=== PATIENT | female | born 1945 | race Caucasian/White ===

== ENCOUNTER 2017-11-28 22:19 | Inpatient (IN) | payer MEDICARE ==
[~2017-11-28] VITALS: Ht 157.5 cm; Wt 97.5 kg
[2017-11-28 22:21] VITALS: BP 164/77
[2017-11-28] MEDS ORDERED: ATORVASTATIN CA40 MG PO (22:27)
[2017-11-28] MEDS ORDERED: LASIX 20 MG TAB20 MG PO (22:27)
[2017-11-28] MEDS ORDERED: CARVEDILOL12.5 MG PO (22:28)
[2017-11-28] MEDS ORDERED: PLAVIX 75 MG TA75 M1 PO (22:28)
[2017-11-28] MEDS ORDERED: COUMADIN 2 MG TA2 M1 PO (22:28)
[2017-11-28] MEDS ORDERED: COZAAR100 MG PO (22:29)
[2017-11-28] MEDS ORDERED: NITROGLYCERIN0.4 MG SUBLING (22:30)
[2017-11-28] MEDS ORDERED: DAILY VITE1 EACH PO (22:30)
[2017-11-28] MEDS ORDERED: NORVASC2.5 MG PO (22:31)
[2017-11-28 22:54] LABS: ABSOLUTE BASOPHILS 0.1 thou/uL (0.0-0.2); ABSOLUTE EOSINOPHILS 0.3 thou/uL (0.0-0.7); ABSOLUTE LYMPHOCYTES 2.7 thou/uL (0.8-5.3); ABSOLUTE MONOCYTES 0.8 thou/uL (0.0-1.2); ABSOLUTE NEUTROPHILS 10.7 thou/uL (1.6-8.1); BASOPHILS 0.3 %; EOSINOPHILS 2.2 %; HEMOGLOBIN 12.8 gm/dL (12.0-15.0); LYMPHOCYTES 18.4 %; MCH 31.3 pg (26.0-34.0); MCHC 32.9 g/dL (28.0-37.0); MONOCYTES 5.3 %; MPV 9.3 fl. (7.2-11.1); NUCLEATED RBCS 0 /100WBC; PLATELET COUNT* 177 thou/uL (150-400); POLYS 73.8 %; RBC 4.11 mil/uL (4.20-5.00); RDW-CV 14.6 % (10.5-14.5); WBC 14.5 thou/uL (4.0-11.0)
[2017-11-28 23:10] LABS: ANION GAP 9 mmol/L (7-16); APTT 35.1 Seconds (25.0-31.3); BUN 28 mg/dL (7-18); CALCIUM 9.3 mg/dL (8.5-10.1); CHLORIDE 105 mmol/L (98-107); CO2 26 mmol/L (21-32); CREATININE 0.9 mg/dL (0.6-1.3); GLUCOSE 172 mg/dL (70-99); POTASSIUM 4.1 mmol/L (3.5-5.1); PROTIME 28.9 Seconds (9.20-11.50); SODIUM 140 mmol/L (136-145)
[2017-11-28 23:19] LABS: ALBUMIN 3.7 g/dL (3.4-5.0); ALKALINE PHOSPHATASE 107 U/L (46-116); NT-PRO BRAIN NAT PEPTIDE 897 pg/mL (<300); SGOT 29 U/L (15-37); SGPT 33 U/L (30-65); TOTAL BILIRUBIN 0.5 mg/dL (<0.1-1.0); TOTAL PROTEIN 7.4 g/dL (6.4-8.2); TROPONIN-I LEVEL <0.06 ng/mL (<0.06)
[2017-11-29 02:23] VITALS: BP 132/79
[2017-11-29 03:00] VITALS: BP 130/66
--- NOTE | 2017-11-29 05:02 | NUR ---
RECEIVED REPORT FROM JAVAD HUSSEIN. PT TRANSFERRED TO ROOM 204 VIA CART. PT A&OX4. VSS. PHYSICAL ASSESSMENT COMPLETED AND CHARTED. PT ON O2 VIA NC AT 2 LPM WITH 96% O2 SAT. PT TRACING SR ON TELE. PT UP ADLIB. PT C/O OF BACK PAIN WITH PAIN SCALE OF 5/10-PT DOES NOT WANT ANY PAIN MEDS. PT RESTED WELL ON BED. HS REST & SAFETY GOALS ACHIEVED. PT ORIENTED TO ROOM & CALL LIGHT. CALL LIGHT WITHIN REACH.
[2017-11-29 08:25] VITALS: BP 140/77
[2017-11-29] MEDS ORDERED: LEVEMIR SUBQ (08:46)
[2017-11-29] MEDS ORDERED: HUMALOG100 UNIT/1 SUBQ ×2 (08:47→08:49)
--- NOTE | 2017-11-29 08:53 | NUR ---
ASSUMED PT. CARE AND RECEIVED REPORT AT 0730. PT. A/OX 4, VSS, MONITOR ON TRACING SR. PT. DENIES CURRENT PAIN. REPORTS SOB IS MUCH IMPROVED FROM ADMISSION. CURRENTLY ON 2L NC @ 96%. FULL ASSESSMENT COMPLETED, REFER TO CHARTING. LONG DISCUSSION WITH PT. ABOUT PNEUMONIA/CHF/DIURETICS THIS MORNING. PT. CURRENTLY HERE ON VACATION FROM [place] TO VISIT FAMILY, SHE IS SUPPOSE TO FLY HOME ON TUESDAY AND IS CONCERNED ABOUT THIS HAPPENING. CURRENTLY NPO FOR CV CONSULT, PT. STATES UNDERSTANDING. PT. BLOOD GLUCOSE 324 THIS MORNING. PT. DOES TAKE LONG/SHORT ACTING, ADDED TO HOME MED AND WILL NOTIFIED PHYSICIAN. CALL LIGHT IN REACH, WILL CONTINUE WITH PLAN OF CARE.
[2017-11-29 10:31] LABS: CREATININE 1.3 mg/dL (0.6-1.3); MAGNESIUM 2.1 mg/dL (1.8-2.4)
[2017-11-29 12:00] VITALS: BP 128/61
--- NOTE | 2017-11-29 15:07 | NUR ---
Pt is A&O. Resides in [place], [place], here on vacation. No DME. No hx of HH or SNF. Supportive family that is involved in POC. Cardiology consult pending. Pt plans to fly home on Tuesday. Following.
[2017-11-29 16:00] VITALS: BP 139/66
--- NOTE | 2017-11-29 16:40 | NUR ---
AT 1600 LAND RECLAMATION SPECIALIST CHECK IT WAS NOTED PT. HAD GONE INTO AFIB. EKG CONFIRMED AFIB RATES 105-130. PT. ASYMPTOMATIC WITH STABLE VS. CALLED EVENT PROMOTER PHONE, MESSAGE LEFT FOR MCKENNA AT 1635. BLOOD GLUCOSE READING ON "HI" ON 1640 ACCU CHECK. STAT LAB ORDERED PER PROTOCOL, AWAITING RESULTS.
--- NOTE | 2017-11-29 20:22 | 2DMMODE ---
[place] [address] 2 D/M-MODE ECHOCARDIOGRAM Name: LIAM CHRISTIANSON Room: [address] IN [facility]#: [id number] Admission: 11/28/17 Attend Phys: Sidney Terrazas, Discharge: Date of : 49 Date of Service: 11/29/172020 Report #: [id number] THIS REPORT FOR: //name// APPROVED REPORT Study performed: 11/29/2017 13:33:36 EXAM: Comprehensive 2D, Doppler, and color-flow Echocardiogram Patient Location: In-Patient Room #: [facility] Status: routine BSA: 2.13 HR: 113 bpm BP: 140/77 mmHg Rhythm: Atrial Fibrillation Other Information Study Quality: Good Indications Dyspnea CAD Echo Enhancing Agent Indication: Endocardial border delineation Agent(s) / Amount(s) Used: Optison 3 cc 2D Dimensions LVEF(%): 59.54 (>50%) IVSd: 12.62 (7-11mm) LVOT Diam: 17.97 (18-24mm) LVDd: 52.82 mm PWd: 10.92 (7-11mm) Ascending Ao: 27.51 (22-36mm) LVDs: 35.98 (25-40mm) Aortic Root: 29.14 mm Elmore's LVEF: 59.54 % Volumes Left Atrial Volume (Systole) LA ESV Index: 24.20 mL/m2 Aortic Valve AoV Peak Jose M.: 1.45 m/s AO Peak Gr.: 8.43 mmHg LVOT Max P.90 mmHg AO Mean Gr.: 4.69 mmHg LVOT Mean P.45 mmHg LVOT Max V: 0.85 m/[place] [address] 2 D/M-MODE ECHOCARDIOGRAM Name: LIAM CHRISTIANSON Room: [address] IN ..#: [id number] Admission: 11/28/17 Attend Phys: Sidney Terrazas, Discharge: Date of : 49 Date of Service: 11/29/172020 Report #: [id number] AO V2 VTI: 29.32 cm LVOT Mean V: 0.55 m/s BRITNEY (VTI): 1.19 cm2 LVOT V1 VTI: 13.79 cm Mitral Valve MV Decel. Time: 124.08 ms MV PHT: 35.98 ms MVA (PHT): 6.11 cm2 TDI Medial E' Jose M.: 0.09 m/s Lateral E' Jose M.: 0.07 m/s Pulmonary Valve PV Peak Jose M.: 0.97 m/s PV Peak Gr.: 3.73 mmHg Tricuspid Valve RAP Estimate: 5.00 mmHg TR Peak Gr.: 36.16 mmHg RVSP: 41.16 mmHg PA Pressure: 41.16 mmHg Left Ventricle The left ventricle is normal size. There is global hypokinesis. Mild concentric left ventricular hypertrophy. Left ventricular systolic function is moderately decreased. LVEF is 35-40%. This study is not technically sufficient to allow evaluation of the LV diastolic function due to atrial fibrillation. Right Ventricle The right ventricle is normal size. The right ventricular systolic function is normal. Atria The left atrium size is normal. The right atrium size is normal. Aortic Valve Mild aortic valve sclerosis. No aortic regurgitation is present. Mild aortic stenosis. Mitral Valve The mitral valve is normal in structure. Trace mitral regurgitation. No evidence of mitral valve stenosis. Tricuspid Valve The tricuspid valve is normal in structure. Mild tricuspid regurgitation. The RVSP is 40-[place] [address] 2 D/M-MODE ECHOCARDIOGRAM Name: SAMMYLIAM Room: [address]#: [id number] Admission: 11/28/17 Attend Phys: Sidney eTrrazas, Discharge: Date of : 49 Date of Service: 11/29/172020 Report #: [id number] Pulmonic Valve The pulmonary valve is normal in structure. There is no pulmonic valvular regurgitation. Great Vessels The aortic root is normal in size. IVC is normal in size and collapses with >50% inspiration Pericardium Trace pericardial effusion. <Conclusion> The left ventricle is normal size. Mild concentric left ventricular hypertrophy. Left ventricular systolic function is moderately decreased. LVEF is 35-40%. This study is not technically sufficient to allow evaluation of the LV diastolic function due to atrial fibrillation. Mild aortic valve sclerosis. Mild aortic stenosis. Trace mitral regurgitation. Mild tricuspid regurgitation. The RVSP is 40-45 mmHg. Trace pericardial effusion. <ELECTRONICALLY SIGNED> By: Curtis Mcneill MD, FACC 11/29/172020 20 20 Curtis Mcneill MD, FACC /INF
[2017-11-30] VITALS: BP 98/51
[2017-11-30 04:00] VITALS: BP 98/41
--- NOTE | 2017-11-30 04:53 | NUR ---
ASSUMED CARE OF PT AFTER REPORT AT 1930. PT A&OX4. VSS. PHYSICAL ASSESSMENT COMPLETED AND CHARTED. PT ON O2 VIA NC @ 2LPM WITH 96% O2 SAT. PT TRACING AFIB ON TELE 110'S-120'S. PT UP ADLIB. PT COMPLAINED OF HEADACHE AND BACK PAIN WITH PAIN SCALE OF 66/10-PAIN MEDS GIVEN PER MAR WITH PARTIAL RELIEF.PT BLOOD SUGAR 479 MG/DL-INSULIN GIVEN PER MAR. DENIES ANY CHEST PAIN OR SOA. PT RESTED WELL ON BED. HS REST & SAFETY GOALS ACHIEVED. CALL LIGHT WITHIN REACH.
[2017-11-30 05:13] LABS: HEMATOCRIT 37.3 % (37.0-47.0); HEMOGLOBIN 12.5 gm/dL (12.0-15.0); MCH 31.9 pg (26.0-34.0); MCHC 33.4 g/dL (28.0-37.0); MCV 95.3 fL (80.0-100.0); MPV 9.5 fl. (7.2-11.1); RBC 3.91 mil/uL (4.20-5.00); RDW-CV 15.1 % (10.5-14.5); WBC 12.2 thou/uL (4.0-11.0)
[2017-11-30 05:54] LABS: CALCIUM 9.4 mg/dL (8.5-10.1); CREATININE 1.2 mg/dL (0.6-1.3); MAGNESIUM 2.2 mg/dL (1.8-2.4); POTASSIUM 4.7 mmol/L (3.5-5.1)
[2017-11-30 08:45] VITALS: BP 139/78
--- NOTE | 2017-11-30 09:29 | NUR ---
ASSUMED PT CARE AT 0730, FULL ASSESMENT DONE CHARTED. PT A/O X4, APPEARS ANXIOUS, SHE STATES SHE LOST HER SONS AND ALL WITH IN THE LAST 2 YEARS, PT IS UPSET DUE TO FINDING OUT SHE HAS HEART FAILURE THIS AM. SHE SPOKE TO THE DR AND IS TO HAVE SOME RECORDS SENT FROM HER HOME HOSPITAL. PTS VSS, HR IN THE 130'S, PT STARTED ON AMIO THIS AM. FALL PRECAUTIONS IN PLACE, CALL LIGHT IN REACH. WILL CONTINUE WITH PLAN OF CARE.
[2017-11-30 12:19] VITALS: BP 100/40
--- NOTE | 2017-11-30 13:33 | EKG ---
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: [place] : 1945 Requested By: Price Cespedes Order Number: [id number] MD: Curtis Mcneill Measurements Intervals [place] Rate: 88 P: 44 ID: 153 QRS: 98 QRSD: 94 T: QT: 371 QTc: 449 Interpretive Statements Sinus rhythm Right axis deviation Nonspecific ST segment depression Borderline repolarization abnormality No previous ECG available for comparison Electronically Signed On 11-30-2017 13:32:48 CDT by Curtis Mcneill [email or web address] <ELECTRONICALLY SIGNED> By: Curtis Mcneill MD, [facility] 11/30/17 1332 25 25 Curtis Mcneill MD, FACC /EPI
--- NOTE | 2017-11-30 13:36 | EKG ---
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: jrvladimir : 1945 Requested By: Sidney Terrazas Order Number: [id number] Olman MD: Curtis Mcneill Measurements Intervals [place] Rate: 107 P: NC: QRS: 104 QRSD: 97 T: 166 QT: 390 QTc: 521 Interpretive Statements Atrial fibrillation Nonspecific T-wave changes Right axis deviation Prolonged QT interval Baseline wander in lead(s) V6 No previous ECG available for comparison Electronically Signed On 11-30-2017 13:36:45 CDT by Curtis Mcneill [email or web address] <ELECTRONICALLY SIGNED> By: Curtis Mcneill MD, FAC 11/30/17 1336 1632 1632 Curtis Mcneill MD, [facility] /EPI
--- NOTE | 2017-11-30 13:41 | EKG ---
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: : 1945 Requested By: Nikos Keating Order Number: [id number] Olman MD: Curtis Mcneill Measurements Intervals [place] Rate: 126 P: RI: QRS: 102 QRSD: 97 T: 184 QT: 364 QTc: 528 Interpretive Statements Atrial fibrillation Right axis deviation Abnormal T, consider ischemia, lateral leads Prolonged QT interval No previous ECG available for comparison Electronically Signed On 11-30-2017 13:40:42 CDT by Curtis Mcneill [email or web address] <ELECTRONICALLY SIGNED> By: Curtis Mcneill MD, [facility] 11/30/17 1340 1950 1950 Curtis Mcneill MD, FAC /EPI
[2017-11-30 15:52] VITALS: BP 103/43
--- NOTE | 2017-11-30 18:56 | NUR ---
PT WAS VERY ANXIOUS THIS AFTERNOON, PT TRIED BENADRYL THAT SHE REPORTED TO HELP. PTS BS STILL ELEVATED, INSULIN ADJUSTED PER MAR. PT REPORTS FEELING BETTER THIS EVENING. PT RESTING IN BED. WILL CONTINUE TO MONITOR.
[2017-11-30 20:00] VITALS: BP 121/73
--- NOTE | 2017-11-30 23:04 | NUR ---
CALL TO DOCTOR CHAPA REGARDING HEART RATE OF 120'S- 130'S. NO NEW ORDERS.
[2017-12-01] VITALS: BP 91/44
--- NOTE | 2017-12-01 02:49 | NUR ---
PATIENT RESTED IN BED, NO ACUTE CHANGES. PATIENT DID NOT SHOW SIGNS OF DISTRESS. PATIENT DID NOT COMPLAIN OF SOB. FALL PRECAUTIONS IN PLACE, CALL LIGHT WITH IN REACH, HOURLY ROUNDING OBSERVED. PATIENT HEART RATE DECREASED BUT IS STILL TACHY.
--- NOTE | 2017-12-01 02:59 | NUR ---
PATIENT IS NPO FOR TESTING.
[2017-12-01 04:00] VITALS: BP 124/67
[2017-12-01 04:27] LABS: CALCIUM 8.8 mg/dL (8.5-10.1); CREATININE 1.2 mg/dL (0.6-1.3); MAGNESIUM 1.9 mg/dL (1.8-2.4); POTASSIUM 4.1 mmol/L (3.5-5.1)
[2017-12-01 08:00] VITALS: BP 112/65
[2017-12-01] MEDS ORDERED: LASIX 40 MG TAB40 M1 PO (09:27)
[2017-12-01] MEDS ORDERED: LEVEMIR SUBQ (09:27)
[2017-12-01] MEDS ORDERED: HUMALOG100 UNIT/1 SUBQ (09:27)
--- NOTE | 2017-12-01 11:00 | NUR ---
ASSUMED PT CARE AT 0730, FULL ASSESMNET DONE CHARTED. PT A/O X4, APPEARS LESS ANXIOUS THAN YESTERDAY. PTS VSS, SHE IS NOW SR ON THE MONITOR, EKG DONE TO CONFIRM. PT DOES WANT TO DISCHARGE TODAY. CARDIOLOGY SIGNED OFF, DISCHARGE ORDERS RECIEVED. WILL CONTINUE WITH PLAN OF CARE UNTIL DISCHARGE.
[2017-12-01 11:43] VITALS: BP 100/43
--- NOTE | 2017-12-01 15:21 | EKG ---
[place] [address] ELECTROCARDIOGRAM REPORT Name: LIAM CHRISTIANSON Room: [address] IN 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: : 1945 Requested By: Sidney Terrazas Order Number: [id number] Reading MD: Adolph Galdamez Measurements Intervals [place] Rate: 59 P: 10 DE: 159 QRS: 92 QRSD: 108 T: 156 QT: 548 QTc: 543 Interpretive Statements Sinus rhythm Right axis deviation Abnrm T, probable ischemia, anterolateral lds Prolonged QT interval Compared to ECG 11/29/2017 19:50:25 Atrial fibrillation no longer present Possible ischemia still present Electronically Signed On 12-01-2017 15:21:28 CDT by Adolph Galdamez [email or web address] <ELECTRONICALLY SIGNED> By: Adolph Galdamez MD, [facility] 12/01/17 1521 0804 0804 Adolph Galdamez MD, [facility] /EPI
--- NOTE | 2017-12-01 15:21 | EKG ---
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: : 1945 Requested By: Evangelina Case Order Number: [id number] Olman MD: Adolph Galdamez Measurements Intervals [place] Rate: 111 P: MT: QRS: 91 QRSD: 96 T: 166 QT: 419 QTc: 570 Interpretive Statements Atrial fibrillation Right axis deviation Low voltage, precordial leads Abnormal T, consider ischemia, diffuse leads Prolonged QT interval Compared to ECG 11/29/2017 19:50:25 Low QRS voltage now present T-wave abnormality still present Possible ischemia still present Electronically Signed On 12-01-2017 15:21:00 CDT by Adolph Galdamez [email or web address] <ELECTRONICALLY SIGNED> By: Adolph Galdamez MD, [facility] 12/01/17 1521 0503 0503 Adolph Galdamez MD, FAC /EPI
== END 2017-12-01 15:00 | disposition home or self-care (01) | DRG 291 ==
LOC: M.ERS 22:19 → M.2W 23:24 → M.TBA-ER 23:24 → M.2W 11-29 02:51
PROVIDERS: Family Medicine; Internal Medicine; ADMIT Internal Medicine
DX: I11.0 Hypertensive heart disease with heart failure (principal); J96.01 Acute respiratory failure with hypoxia; I50.43 Acute on chronic combined systolic (congestive) and diastolic (congestive) heart failure; I42.9 Cardiomyopathy, unspecified; I48.0 Paroxysmal atrial fibrillation; E78.5 Hyperlipidemia, unspecified; E11.9 Type 2 diabetes mellitus without complications; I25.10 Atherosclerotic heart disease of native coronary artery without angina pectoris; E66.01 Morbid (severe) obesity due to excess calories; D72.829 Elevated white blood cell count, unspecified; Z79.899 Other long term (current) drug therapy; Z88.0 Allergy status to penicillin; Z79.01 Long term (current) use of anticoagulants; Z95.5 Presence of coronary angioplasty implant and graft; Z68.39 Body mass index [BMI] 39.0-39.9, adult; Z79.4 Long term (current) use of insulin